=== PATIENT | male | born 1980 | race Caucasian/White ===

== ENCOUNTER 2021-07-10 14:42 | Emergency (ER) | payer OTHER, SELFPAY ==
[2021-07-10 14:57] VITALS: BP 133/76; PULSE 71; RESP 18; TEMP 36.7; O2SAT 100
--- NOTE | 2021-07-10 16:43 | DI.RAD.S_ITS ---
PROCEDURE: XR CHEST 1V INDICATIONS: chest pain TECHNIQUE: One view of the chest was acquired. COMPARISON: None. FINDINGS: Surgical changes and devices: None. Lungs and pleura: Lungs are clear. No pleural effusions or pneumothorax. Mediastinum: Mediastinal contours appear normal. Heart size is normal. Bones and chest wall: No suspicious bony lesions. Overlying soft tissues appear unremarkable. IMPRESSION: No acute cardiopulmonary abnormality. Dictated by: Attila Hicks M.D. on 07/10/2021 at 17:04 Approved by: Attila Hicks M.D. on 07/10/2021 at 17:04
[2021-07-10 17:02] LABS: Add Manual Diff / Slide Review NO; Basophils Absolute Auto 0 /uL (0-100); Basophils Percent Auto 0.5 % (0-2); Eosinophils Absolute Auto 100 /uL (0-450); Eosinophils Percent Auto 2.1 % (2-4); Hematocrit 46.9 % (41-53); Hemoglobin 16.5 g/dL (13.5-17.5); Lymphocytes Absolute Auto 2400 /uL (1100-4500); Lymphocytes Percent Auto 35.4 % (25-40); Mean Corpuscular HGB Conc 35.1 % (30-36); Mean Corpuscular Hemoglobin 31.1 PG (26-34); Mean Corpuscular Volume 88.6 fL (80-100); Monocytes Absolute Auto 500 /uL (0-900); Monocytes Percent Auto 7.3 % (3-14); Neutrophils Absolute Auto 3700 /uL (1500-7000); Neutrophils Percent Auto 54.7 % (50-75); Platelet Count 204 X10^3/uL (150-400); White Blood Cell Count 6.8 X10^3/uL (4.5-11.0)
[2021-07-10 17:06] LABS: Alanine Aminotransferase 27 IU/L (<50); Albumin Globulin Ratio 1.5 (1.0-2.8); Alkaline Phosphatase 62 U/L (38-126); Aspartate Aminotransferase 36 IU/L (17-59); BUN Creatinine Ratio 20.7 (6-22); Bilirubin Total 0.8 mg/dL (0.2-1.3); Blood Urea Nitrogen 18 mg/dL (9-20); Carbon Dioxide 31 mmol/L (22-32); Chloride 100 mmol/L (98-107); Creatine Kinase 199 U/L (55-170); Estimated Glomerular Filt Rate > 60.0 mL/min (>60); Globulin 3.4 g/dL (1.7-4.1); Glucose 88 mg/dL (70-100); HEMOLYSIS < 15 (0-50); Lipase 84 U/L (23-300); Magnesium 2.1 mg/dL (1.6-2.3); Sodium 138 mmol/L (137-145); Total Protein 8.4 g/dL (6.3-8.2)
[2021-07-10 17:18] LABS: Troponin I < 0.012 ng/mL (0.01-0.034)
[2021-07-10 17:21] LABS: CKMB % Relative Index 0.7 % (1.5-5.0); Creatine Kinase MB 1.42 ng/mL (<2.37)
--- NOTE | 2021-07-10 18:14 | ED.CHESTPAIN ---
HPI - Chest Pain General Chief Complaint: Chest Pain Stated Complaint: CHEST PAIN Time Seen by Provider: 07/10/21 18:13 Source: patient Mode of arrival: Ambulatory Limitations: no limitations History of Present Illness HPI narrative: This is a 40-year-old male comes in with complaint of left-sided chest pain in his neck and anterior chest for the past week. He states intermittent. 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 No shortness of breath. No diaphoresis. No nausea or vomiting. He denies any radiation of pain down his arm. No numbness, tingling or weakness. No swelling extremities. No diarrhea constipation. Patient states he is otherwise healthy. He has tried Advil which has been helpful. He saw chiropractor yesterday which did resolve his symptoms and they told him to get checked out of it did not. He tried to go to the clinic on [facility] I told him to go get checked out. He went to the EMS on [facility] they did an EKG which was normal according to them but told him he should go get checked out. Patient takes an antidepressant but no other daily medications. He has had an appendectomy. He denies any family history of pulmonary embolism, folic history, cardiac or pulmonary history. No tobacco. Review of Systems Review of Systems ROS Unobtainable: All systems reviewed & are unremarkable except as noted in HPI and below Patient History Social History Smoking Status: Never smoker Smoking Status: Never smoker Exam Narrative Exam Narrative: GENERAL: Alert and oriented x three, male in no acute distress. HEENT: Head normocephalic, atraumatic, EOMI, pupils reactive, face symmetric, moist mucous membranes NECK: Supple, full range of motion, no cervical or thoracic vertebral tenderness. CARDIOVASCULAR: Regular rate and rhythm without murmurs, rubs or gallops. RESPIRATORY: Breath sounds equal bilaterally, no wheezes rales or rhonchi. ABDOMEN: Soft, nontender. Normoactive bowel sounds all 4 quadrants. No guarding or rebound, rigidity, no mass : No CVA tenderness EXTREMITIES: Normal range of motion, no clubbing or edema. Neurovascularly intact. NEUROLOGICAL: Cranial nerves II through XII grossly intact. Moving all extremities SKIN: Warm, dry, no petechiae, no rashes or lesions. Initial Vital Signs Initial Vital Signs: Vital Signs Temperature 98.1 F 07/10/21 14:57 Pulse Rate 71 07/10/21 14:57 Respiratory Rate 18 07/10/21 14:57 Blood Pressure 133/76 07/10/21 14:57 Pulse Oximetry 100 07/10/21 14:57 Scores HEART Score Heart Score history: Slightly Suspicious Heart Score EKG: Normal Heart Score Age: < 45 years old Heart Score risk factors: No known risk factors Heart Score troponin: < or = to normal limit Heart Score Total: 0 Course Orders Ordered: ED Orders 07/10/21 15:02 Complete Blood Count AUTO DIFF Stat Comprehensive Metabolic Panel Stat Lipase Stat Magnesium Stat Troponin & CK Cardiac Panel Stat 07/10/21 15:03 EKG-12 Lead Routine 07/10/21 16:43 XR chest 1V Stat EKG-12 Lead Stat Vital Signs Vital signs: Vital Signs - 8 hr 07/10/21 14:57 Temperature 98.1 F Pulse Rate 71 Respiratory Rate 18 Blood Pressure 133/76 Pulse Oximetry 100 MDM - Chest Pain Lab Data Result diagrams: 07/10/21 15:02 07/10/21 15:02 Labs: Lab Results 07/10/21 07/10/21 Range/Units 15:02 15:02 WBC 6.8 (4.5-11.0) X10^3/uL RBC 5.30 (4.5-5.9) X10^6/uL Hgb 16.5 (13.5-17.5) g/dL Hct 46.9 (41-53) % MCV 88.6 (80-100) fL MCH 31.1 (26-34) PG MCHC 35.1 (30-36) % RDW 13.0 (11.6-14.8) % Plt Count 204 (150-400) X10^3/uL Neut % (Auto) 54.7 (50-75) % Lymph % (Auto) 35.4 (25-40) % Emmet % (Auto) 7.3 (3-14) % Eos % (Auto) 2.1 (2-4) % Baso % (Auto) 0.5 (0-2) % Neut # (Auto) 3700 (4312-9776) /uL Lymph # (Auto) 2400 (8149-5501) /uL Emmet # (Auto) 500 (0-900) /uL Eos # (Auto) 100 (0-450) /uL Baso # (Auto) 0 (0-100) /uL Sodium 138 (137-145) mmol/L Potassium 4.0 (3.4-5.1) mmol/L Chloride 100 (98-107) mmol/L Carbon Dioxide 31 (22-32) mmol/L BUN 18 (9-20) mg/dL Creatinine 0.87 (0.66-1.25) mg/dL Estimated GFR > 60.0 (>60) mL/min BUN/Creatinine Ratio 20.7 (6-22) Glucose 88 (70-100) mg/dL Calcium 10.0 (8.4-10.2) mg/dL Magnesium 2.1 (1.6-2.3) mg/dL Total Bilirubin 0.8 (0.2-1.3) mg/dL AST 36 (17-59) IU/L ALT 27 (<50) IU/L Alkaline Phosphatase 62 (38-126) U/L Total Creatine Kinase 199 H (55-170) U/L CK-MB (CK-2) 1.42 (<2.37) ng/mL CK-MB (CK-2) Rel Index 0.7 L (1.5-5.0) % Troponin I < 0.012 (0.01-0.034) ng/mL Total Protein 8.4 H (6.3-8.2) g/dL Albumin 5.0 (3.5-5.0) g/dL Globulin 3.4 (1.7-4.1) g/dL Albumin/Globulin Ratio 1.5 (1.0-2.8) Lipase 84 (23-300) U/L Imaging Data Chest x-ray: Radiologist's Impression: Nash Woodruff??40??M??1980 ? Allergy/Adv: Not Recorded Close Chest X-Ray (Signed) Attila Hicks - 07/10/21 Launch?[address] [address] XRay Report Signed Patient: Nash Woodruff MR#: [id number] : 1980 Acct:[id number] Age/Sex: 40 / M Date of Service: 07/10/21 Loc: ED Accession Number: [id number] ?? Procedure: XR chest 1V Ordering Provider: Ramon Maradiaga D.O. PROCEDURE:? XR CHEST 1V ? INDICATIONS:? chest pain ? TECHNIQUE:? One view of the chest was acquired.? ? COMPARISON:? None. ? FINDINGS:? ? Surgical changes and devices:? None.? ? Lungs and pleura:? Lungs are clear.? No pleural effusions or pneumothorax.? ? Mediastinum:? Mediastinal contours appear normal.? Heart size is normal.? ? Bones and chest wall:? No suspicious bony lesions.? Overlying soft tissues appear unremarkable.? ? IMPRESSION:? No acute cardiopulmonary abnormality. ? ? Dictated by: Attila Hicks M.D. on 07/10/2021 at 17:04 ? ? Approved by: Attila Hicks M.D. on 07/10/2021 at 17:04?? ECG Data Attestation: I personally reviewed and interpreted this ECG as follows: Prior ECG tracings: not available for review Interpretation: Sinus rhythm no acute ST changes appreciated. Rate of 68 FL 142 QRS 88 QTC of 414. No priors for comparison. MDM Narrative Medical decision making narrative: This is a 40-year-old male with positional reproducible chest pain on exam with no suspicious factors described for cardiac, embolic or pulmonary history. EKG, chest x-ray and lab work are reassuring. Patient's heart score is 0. Discharge Plan Departure Patient Disposition: Home Clinical Impression: Atypical chest pain Instructions: DI for Atypical Chest Pain Activity Restrictions/Additional Instructions: Follow-up with your physician for recheck if you do not have improvement of your symptoms. You can continue with Aleve or Tylenol as needed for pain. Return for new or worsening symptoms, shortness of breath, diaphoresis, persistent nausea vomiting, lightheadedness, passing out, new swelling in her extremities or other new or concerning symptoms.
== END 2021-07-10 19:21 | disposition home or self-care (01) ==
PROVIDERS: Emergency Medicine; Emergency Provider Emergency Medicine
DX: R07.89 Other chest pain (principal)
CPT/HCPCS: 71045; 80053; 82550; 82553; 83690; 83735; 84484; 85025; 93005; 93010; 99283; 99284

== ENCOUNTER → 2021-07-24 09:28 | Outpatient (CLI) | payer OTHER, SELFPAY ==
[2021-07-24 20:51] LABS: Chloride 102 mmol/L (98-107); HEMOLYSIS < 15 (0-50)
[2021-07-24 20:53] LABS: Alanine Aminotransferase 26 IU/L (<50); Albumin 4.6 g/dL (3.5-5.0); Albumin Globulin Ratio 1.6 (1.0-2.8); Alkaline Phosphatase 53 U/L (38-126); Aspartate Aminotransferase 32 IU/L (17-59); BUN Creatinine Ratio 22.7 (6-22); Bilirubin Total 0.8 mg/dL (0.2-1.3); Blood Urea Nitrogen 22 mg/dL (9-20); Calcium 9.5 mg/dL (8.4-10.2); Carbon Dioxide 31 mmol/L (22-32); Cholesterol 190 mg/dL (140-199); Estimated Glomerular Filt Rate > 60.0 mL/min (>60); Globulin 2.8 g/dL (1.7-4.1); Glucose 94 mg/dL (70-100); HDL Cholesterol 68 mg/dL (40-60); LDL Cholesterol Calculated 111 mg/dL (<100); Potassium 4.1 mmol/L (3.4-5.1); Sodium 139 mmol/L (137-145); Total Protein 7.4 g/dL (6.3-8.2); Triglycerides 57 mg/dL (35-150)
[2021-07-24 21:18] LABS: TSH w/ Reflex to FT4 2.56 uIU/mL (0.47-4.68)
== END ==
PROVIDERS: PCP Physician Assistant; Visit Provider Physician Assistant
DX: F41.9 Anxiety disorder, unspecified (principal); G47.30 Sleep apnea, unspecified; Z13.220 Encounter for screening for lipoid disorders
CPT/HCPCS: 80053; 80061; 84443

== ENCOUNTER → 2021-09-27 08:42 | Outpatient (CLI) | payer OTHER, SELFPAY ==
[2021-09-27 20:09] LABS: Urine N gonorrhoeae NOT DETECTED
[2021-09-27 20:26] LABS: Urine Chlamydia NOT DETECTED
== END ==
PROVIDERS: PCP Physician Assistant; Visit Provider Physician Assistant
DX: R10.2 Pelvic and perineal pain (principal); Z11.3 Encounter for screening for infections with a predominantly sexual mode of transmission
CPT/HCPCS: 87491; 87591

== ENCOUNTER → 2021-09-28 10:33 | Outpatient (CLI) | payer OTHER, SELFPAY ==
[2021-09-28 19:06] LABS: Prostate Specific Antigen 0.614 ng/mL (0.10-4.00)
== END ==
PROVIDERS: PCP Physician Assistant; Visit Provider Physician Assistant
DX: R10.2 Pelvic and perineal pain (principal)
CPT/HCPCS: 84153

== ENCOUNTER → 2022-11-12 11:01 | Outpatient (CLI) | payer OTHER, SELFPAY ==
[2022-11-12 19:10] LABS: Add Manual Diff / Slide Review NO; Basophils Absolute Auto 0 /uL (0-100); Basophils Percent Auto 0.8 % (0-2); Eosinophils Absolute Auto 100 /uL (0-450); Eosinophils Percent Auto 1.7 % (2-4); Hematocrit 44.8 % (41-53); Hemoglobin 15.4 g/dL (13.5-17.5); Lymphocytes Absolute Auto 1500 /uL (1100-4500); Lymphocytes Percent Auto 30.7 % (25-40); Mean Corpuscular HGB Conc 34.4 % (30-36); Mean Corpuscular Hemoglobin 30.9 PG (26-34); Mean Corpuscular Volume 89.9 fL (80-100); Monocytes Absolute Auto 400 /uL (0-900); Monocytes Percent Auto 8.1 % (3-14); Neutrophils Absolute Auto 2900 /uL (1500-7000); Neutrophils Percent Auto 58.7 % (50-75); Platelet Count 179 X10^3/uL (150-400); Red Blood Cell Count 4.98 X10^6/uL (4.5-5.9); Red Cell Distribution Width 13.3 % (11.6-14.8)
[2022-11-12 19:22] LABS: Alanine Aminotransferase 27 IU/L (<50); Albumin 4.5 g/dL (3.5-5.0); Albumin Globulin Ratio 1.7 (1.0-2.8); Alkaline Phosphatase 66 U/L (38-126); Aspartate Aminotransferase 32 IU/L (17-59); BUN Creatinine Ratio 20.4 (6-22); Bilirubin Total 0.7 mg/dL (0.2-1.3); Blood Urea Nitrogen 20 mg/dL (9-20); C-Reactive Protein Quant < 0.5 mg/dL (<1.0); Calcium 9.4 mg/dL (8.4-10.2); Carbon Dioxide 33 mmol/L (22-32); Chloride 99 mmol/L (98-107); Cholesterol 160 mg/dL (140-199); Estimated Glomerular Filt Rate > 60 mL/min (>60); Globulin 2.7 g/dL (1.7-4.1); Glucose 84 mg/dL (70-100); HDL Cholesterol 57 mg/dL (40-60); HEMOLYSIS 16 (0-50); LDL Cholesterol Calculated 91 mg/dL (<100); Potassium 3.9 mmol/L (3.4-5.1); Sodium 139 mmol/L (137-145); Total Protein 7.2 g/dL (6.3-8.2); Triglycerides 60 mg/dL (35-150)
[2022-11-12 19:23] LABS: Rheumatoid Factor < 8.6 IU/mL (<12.0)
[2022-11-12 19:59] LABS: Erythrocyte Sedimentation Rate 1 MM/HR (0-15)
[2022-11-13 21:52] LABS: x Labcorp Estim. Avg Glu (eAG) 103 mg/dL (.); x Labcorp Hemoglobin A1c 5.2 % (4.8-5.6)
== END ==
PROVIDERS: PCP Physician Assistant; Visit Provider Physician Assistant
DX: K62.5 Hemorrhage of anus and rectum (principal); M25.50 Pain in unspecified joint; R07.81 Pleurodynia
CPT/HCPCS: 80053; 80061; 83036; 85025; 85651; 86140; 86430

== ENCOUNTER → 2023-02-19 14:02 | Outpatient (CLI) | payer OTHER, SELFPAY | PROVIDERS: PCP Physician Assistant Medical; Visit Provider Physician Assistant Medical | DX: R39.89 Other symptoms and signs involving the genitourinary system (principal) | CPT/HCPCS: 87086 ==

== ENCOUNTER → 2023-03-20 10:39 | Outpatient (CLI) | payer OTHER, SELFPAY ==
[2023-03-20 19:40] LABS: Alanine Aminotransferase 22 IU/L (<50); Albumin 4.5 g/dL (3.5-5.0); Albumin Globulin Ratio 1.6 (1.0-2.8); Alkaline Phosphatase 64 U/L (38-126); Aspartate Aminotransferase 30 IU/L (17-59); BUN Creatinine Ratio 18.4 (6-22); Bilirubin Total 0.6 mg/dL (0.2-1.3); Blood Urea Nitrogen 16 mg/dL (9-20); C-Reactive Protein Quant < 0.5 mg/dL (<1.0); Calcium 9.7 mg/dL (8.4-10.2); Carbon Dioxide 30 mmol/L (22-32); Chloride 99 mmol/L (98-107); Cholesterol 157 mg/dL (140-199); Estimated Glomerular Filt Rate > 60 mL/min (>60); Globulin 2.8 g/dL (1.7-4.1); Glucose 89 mg/dL (70-100); HDL Cholesterol 60 mg/dL (40-60); HEMOLYSIS 25 (0-50); LDL Cholesterol Calculated 82 mg/dL (<100); Potassium 4.4 mmol/L (3.4-5.1); Sodium 136 mmol/L (137-145); Total Protein 7.3 g/dL (6.3-8.2); Triglycerides 75 mg/dL (35-150)
[2023-03-20 19:43] LABS: Rheumatoid Factor < 8.6 IU/mL (<12.0)
[2023-03-20 19:44] LABS: Add Manual Diff / Slide Review NO; Basophils Absolute Auto 0 /uL (0-100); Basophils Percent Auto 0.8 % (0-2); Eosinophils Absolute Auto 100 /uL (0-450); Eosinophils Percent Auto 1.7 % (2-4); Hemoglobin 15.8 g/dL (13.5-17.5); Lymphocytes Absolute Auto 1400 /uL (1100-4500); Mean Corpuscular HGB Conc 34.3 % (30-36); Mean Corpuscular Hemoglobin 30.8 PG (26-34); Mean Corpuscular Volume 89.8 fL (80-100); Monocytes Absolute Auto 400 /uL (0-900); Monocytes Percent Auto 8.5 % (3-14); Neutrophils Absolute Auto 2800 /uL (1500-7000); Platelet Count 174 X10^3/uL (150-400); Red Blood Cell Count 5.13 X10^6/uL (4.5-5.9); Red Cell Distribution Width 12.8 % (11.6-14.8); White Blood Cell Count 4.8 X10^3/uL (4.5-11.0)
[2023-03-20 19:45] LABS: Erythrocyte Sedimentation Rate 2 MM/HR (0-15)
[2023-03-20 20:15] LABS: TSH w/ Reflex to FT4 1.69 uIU/mL (0.47-4.68)
== END ==
PROVIDERS: PCP Physician Assistant Medical; Visit Provider Physician Assistant Medical
DX: K62.5 Hemorrhage of anus and rectum (principal); R07.9 Chest pain, unspecified; R51.9 Headache, unspecified; M25.50 Pain in unspecified joint; Z11.2 Encounter for screening for other bacterial diseases
CPT/HCPCS: 80053; 80061; 84443; 85025; 85651; 86140; 86430

== ENCOUNTER → 2024-01-13 11:46 | Outpatient (CLI) | payer OTHER, SELFPAY ==
[2024-01-13 19:15] LABS: Add Manual Diff / Slide Review NO; Basophils Absolute Auto 0 /uL (0-100); Basophils Percent Auto 0.6 % (0-2); Eosinophils Absolute Auto 0 /uL (0-450); Eosinophils Percent Auto 0.2 % (2-4); Hematocrit 44.8 % (41-53); Hemoglobin 15.7 g/dL (13.5-17.5); Lymphocytes Absolute Auto 1100 /uL (1100-4500); Lymphocytes Percent Auto 17.1 % (25-40); Mean Corpuscular HGB Conc 34.9 % (30-36); Mean Corpuscular Hemoglobin 31.2 PG (26-34); Mean Corpuscular Volume 89.3 fL (80-100); Monocytes Absolute Auto 700 /uL (0-900); Monocytes Percent Auto 11.5 % (3-14); Neutrophils Absolute Auto 4500 /uL (1500-7000); Neutrophils Percent Auto 70.6 % (50-75); Platelet Count 210 X10^3/uL (150-400); Red Blood Cell Count 5.02 X10^6/uL (4.5-5.9); Red Cell Distribution Width 12.8 % (11.6-14.8); White Blood Cell Count 6.3 X10^3/uL (4.5-11.0)
[2024-01-13 19:17] LABS: Alanine Aminotransferase 23 IU/L (<50); Albumin 4.7 g/dL (3.5-5.0); Alkaline Phosphatase 54 U/L (38-126); Aspartate Aminotransferase 34 IU/L (17-59); BUN Creatinine Ratio 11.6 (6-22); Bilirubin Total 1.3 mg/dL (0.2-1.3); Blood Urea Nitrogen 10 mg/dL (9-20); C-Reactive Protein Quant < 0.5 mg/dL (<1.0); Calcium 9.6 mg/dL (8.4-10.2); Carbon Dioxide 29 mmol/L (22-32); Chloride 94 mmol/L (98-107); Estimated Glomerular Filt Rate > 60 mL/min (>60); Gamma Glutamyl Transpeptidase 23 U/L (15-73); Globulin 2.4 g/dL (1.7-4.1); Glucose 110 mg/dL (70-100); HEMOLYSIS < 15 (0-50); Potassium 3.4 mmol/L (3.4-5.1); Sodium 134 mmol/L (137-145); Total Protein 7.1 g/dL (6.3-8.2)
[2024-01-13 19:21] LABS: Rheumatoid Factor < 8.6 IU/mL (<12.0)
[2024-01-13 19:46] LABS: TSH w/ Reflex to FT4 1.71 uIU/mL (0.47-4.68)
[2024-01-13 19:50] LABS: Erythrocyte Sedimentation Rate 2 MM/HR (0-15)
== END ==
PROVIDERS: PCP Physician Assistant Medical; Referring Provider Physician Assistant Medical; Visit Provider Physician Assistant Medical
DX: F41.0 Panic disorder [episodic paroxysmal anxiety] (principal); R68.2 Dry mouth, unspecified; G47.00 Insomnia, unspecified; R14.0 Abdominal distension (gaseous); H04.129 Dry eye syndrome of unspecified lacrimal gland
CPT/HCPCS: 80053; 82977; 84443; 85025; 85651; 86140; 86430

== ENCOUNTER → 2024-01-22 08:30 | Outpatient (CLI) | payer OTHER, SELFPAY ==
[2024-01-22 19:19] LABS: Add Manual Diff / Slide Review NO; Basophils Absolute Auto 0 /uL (0-100); Basophils Percent Auto 0.5 % (0-2); Eosinophils Absolute Auto 0 /uL (0-450); Eosinophils Percent Auto 0.3 % (2-4); Hematocrit 45.3 % (41-53); Hemoglobin 15.9 g/dL (13.5-17.5); Lymphocytes Absolute Auto 1000 /uL (1100-4500); Lymphocytes Percent Auto 22.1 % (25-40); Mean Corpuscular HGB Conc 35.1 % (30-36); Mean Corpuscular Volume 88.5 fL (80-100); Monocytes Absolute Auto 500 /uL (0-900); Monocytes Percent Auto 11.3 % (3-14); Neutrophils Absolute Auto 3000 /uL (1500-7000); Neutrophils Percent Auto 65.8 % (50-75); Platelet Count 187 X10^3/uL (150-400); Red Blood Cell Count 5.11 X10^6/uL (4.5-5.9); Red Cell Distribution Width 12.6 % (11.6-14.8); White Blood Cell Count 4.6 X10^3/uL (4.5-11.0)
[2024-01-22 19:28] LABS: Amylase 56 U/L (30-110); Gamma Glutamyl Transpeptidase 18 U/L (15-73); Lipase 88 U/L (23-300)
[2024-01-27 19:07] LABS: Fecal Immunochemical Test Positive (Negative)
== END ==
PROVIDERS: PCP Physician Assistant Medical; Visit Provider Physician Assistant Medical
DX: R14.0 Abdominal distension (gaseous) (principal); R10.9 Unspecified abdominal pain; K29.70 Gastritis, unspecified, without bleeding
CPT/HCPCS: 82150; 82274; 82977; 83690; 85025; 87177

== ENCOUNTER → 2024-01-27 15:33 | Outpatient (CLI) | payer OTHER, SELFPAY ==
--- NOTE | 2024-01-27 15:34 | DI.US.S_ITS ---
PROCEDURE: US ABDOMEN LIMITED INDICATIONS: abdominal pain TECHNIQUE: Real-time focused scanning was performed of the abdomen, with image documentation. COMPARISON: None. Findings and impression: At the area of clinical concern along the left rectus, there is a 1.9 x 0.5 x 2.1 cm hyperechoic region. A 2nd similar region in the right rectus measures 3.3 x 0.7 x 3.8 cm. Differential includes fat necrosis, muscle contusions, or small benign or malignant masses. No discrete fluid collection. Clinical follow-up is recommended. Additional imaging could be obtained with MRI with BB markers if there are clinically suspicious findings. Dictated by: Billy Desai M.D. on 01/28/2024 at 13:18 Approved by: Billy Desai M.D. on 01/28/2024 at 13:20
== END ==
PROVIDERS: PCP Physician Assistant Medical; Referring Provider Physician Assistant Medical; Visit Provider Physician Assistant Medical
DX: R93.5 Abnormal findings on diagnostic imaging of other abdominal regions, including retroperitoneum (principal); R10.9 Unspecified abdominal pain
CPT/HCPCS: 76705

== ENCOUNTER → 2024-01-29 10:00 | Outpatient (CLI) | payer OTHER, SELFPAY ==
[2024-02-01 13:07] LABS: H. Pylori Antigen Stool Negative (Negative)
== END ==
PROVIDERS: PCP Physician Assistant Medical; Visit Provider Physician Assistant Medical
DX: R14.0 Abdominal distension (gaseous) (principal); K29.70 Gastritis, unspecified, without bleeding
CPT/HCPCS: 87177; 87338

== ENCOUNTER → 2024-02-11 08:22 | Outpatient (CLI) | payer OTHER, SELFPAY | PROVIDERS: PCP Physician Assistant Medical; Referring Provider Physician Assistant Medical; Visit Provider Physician Assistant Medical | DX: R10.9 Unspecified abdominal pain (principal) | CPT/HCPCS: 87086 ==

== ENCOUNTER → 2024-02-13 10:38 | Outpatient (CLI) | payer OTHER, SELFPAY ==
--- NOTE | 2024-02-13 10:39 | DI.US.S_ITS ---
PROCEDURE: US ABDOMEN LIMITED INDICATIONS: EPIGASTRIC PAIN ?PANCREATIC PATHOLOGY. SUBSTERNAL LUMP. TECHNIQUE: Real-time scanning was performed of the abdominal and retroperitoneal organs, with image documentation. COMPARISON: [facility], , US ABDOMEN LIMITED, 01/27/2024, 16:21. FINDINGS: Liver: Liver is normal in size and homogeneous in echotexture. Gallbladder: There is no gallstone. No gallbladder wall thickening or pericholecystic fluid. No sonographic Lizarraga sign. Biliary ducts: Intrahepatic bile ducts are non-dilated. Extrahepatic bile duct caliber measures 3.3 mm. Normal is 6-7 mm or less in diameter, or 10 mm or less post-cholecystectomy. Pancreas: Visualized portions of the pancreas are sonographically normal. Miscellaneous: No free abdominal fluid. Examination of left anterior chest wall inferior to the sternum shows minimally hypoechoic area just deep to the skin surface and measures 2 x 2 x 1 mm in size and show no internal vascularity. This corresponds to patient's reported area of palpable lump. IMPRESSION: 1. Questionable tiny 2 millimeter solid nodule in subcutaneous soft tissue of left anterior chest wall just below the sternum as described above and is of indeterminate significance. Clinical correlation and follow-up is recommended. 2. Otherwise unremarkable ultrasound examination of right upper quadrant abdomen. Dictated by: Tacho Linda M.D. on 02/13/2024 at 14:59 Approved by: Tacho Linda M.D. on 02/13/2024 at 15:01
[2024-02-13 12:45] LABS: Alanine Aminotransferase 31 IU/L (<50); Albumin 4.7 g/dL (3.5-5.0); Alkaline Phosphatase 48 U/L (38-126); Amylase 70 U/L (30-110); Aspartate Aminotransferase 33 IU/L (17-59); Bilirubin Total 1.2 mg/dL (0.2-1.3); Blood Urea Nitrogen 9 mg/dL (9-20); Calcium 10.1 mg/dL (8.4-10.2); Carbon Dioxide 30 mmol/L (22-32); Chloride 99 mmol/L (98-107); Estimated Glomerular Filt Rate > 60 mL/min (>60); Globulin 2.4 g/dL (1.7-4.1); Glucose 82 mg/dL (70-100); HEMOLYSIS < 15 (0-50); Lipase 117 U/L (23-300); Potassium 4.2 mmol/L (3.4-5.1); Sodium 139 mmol/L (137-145); Total Protein 7.1 g/dL (6.3-8.2)
== END ==
PROVIDERS: PCP Physician Assistant Medical; Referring Provider Physician Assistant Medical; Visit Provider Physician Assistant Medical
DX: K86.89 Other specified diseases of pancreas (principal); R10.9 Unspecified abdominal pain; E87.1 Hypo-osmolality and hyponatremia; G47.00 Insomnia, unspecified; F41.0 Panic disorder [episodic paroxysmal anxiety]
CPT/HCPCS: 36415; 76705; 80053; 82150; 83690

== ENCOUNTER → 2024-08-19 10:16 | Outpatient (CLI) | payer OTHER, SELFPAY | PROVIDERS: PCP Physician Assistant Medical; Visit Provider Physician Assistant Medical | DX: T14.8XXA Other injury of unspecified body region, initial encounter (principal) | CPT/HCPCS: 87070; 87075; 87205 ==

== ENCOUNTER → 2025-04-07 15:50 | Outpatient (CLI) | payer OTHER, SELFPAY | PROVIDERS: PCP Family Medicine; Referring Provider Family Medicine; Visit Provider Family Medicine | DX: Z13.88 Encounter for screening for disorder due to exposure to contaminants (principal); R10.10 Upper abdominal pain, unspecified; R14.0 Abdominal distension (gaseous); Z77.018 Contact with and (suspected) exposure to other hazardous metals | CPT/HCPCS: 36415; 82525; 83655; 84630 ==